=== PATIENT | male | born 1955 | race Caucasian/White ===

== ENCOUNTER 2021-06-08 18:40 | Inpatient (IN) ==
[2021-06-09] MEDS: tiZANidine 4 MG TABLET PO SCH ×2 (18:28→22:37)
[2021-06-09] MEDS: carvediloL 6.25 MG TABLET PO SCH (18:28)
[2021-06-09] MEDS: traZODone 50 MG TABLET PO SCH (22:37)
[2021-06-09] MEDS: Apixaban 5 MG TABLET PO SCH (22:37)
[2021-06-09] MEDS: hydrALAZINE 25 MG TABLET PO SCH (22:37)
[2021-06-10 05:52] LABS: Basophils % 0.3 %; Eosinophils % 0.1 %; Hematocrit 27.2 % (37.5-50.1); Hemoglobin 8.5 g/dL (12.9-16.9); Immature Granulocytes % 2.3 % (0-4); Lymphocytes # 1.5 K/mcL (0.6-4.6); Lymphocytes % 12.9 %; Mean Corpuscular HGB Conc 31.3 g/dL (31.6-35.5); Mean Corpuscular Hemoglobin 27.1 pg (28.0-33.3); Mean Corpuscular Volume 86.6 fL (83.0-100.0); Mean Platelet Volume 10.9 fL (9.4-12.4); Monocytes # 0.6 K/mcL (0.0-1.3); Monocytes % 5.2 %; Neutrophils # 9.1 K/mcL (1.6-8.9); Platelet Count 386 K/mcL (140-400); Red Blood Count 3.14 M/mcL (4.19-5.50); Red Cell Distribution Width 14.1 % (11.5-14.5); Segmented Neutrophils % 79.2 %; White Blood Count 11.5 K/mcL (4.3-11.1)
[2021-06-10 06:13] LABS: Calcium 8.4 mg/dL (8.6-10.3); Potassium 4.6 mEq/L (3.5-5.1)
[2021-06-10] MEDS: carvediloL 6.25 MG TABLET PO SCH (09:43)
[2021-06-10] MEDS: Aspirin Enteric Coated 81 MG Tablet PO SCH (09:45)
[2021-06-10] MEDS: Apixaban 5 MG TABLET PO SCH ×2 (09:46→21:24)
[2021-06-10] MEDS: amLODIPine 5 MG TABLET PO SCH (09:46)
[2021-06-10] MEDS: lisinopriL 10 MG TABLET PO SCH (09:46)
[2021-06-10] MEDS: allopurinoL 300 MG TABLET PO SCH (09:47)
[2021-06-10] MEDS: *HR* GlipiZIDE XL (24 HR) 2.5 MG TABLET PO SCH (09:47)
[2021-06-10] MEDS: tiZANidine 4 MG TABLET PO SCH ×3 (09:47→21:24)
[2021-06-10] MEDS: predniSONE 20 MG TABLET PO SCH (09:47)
[2021-06-10] MEDS ORDERED: D5% in Water 1,000 ML IVC PRN (16:30)
[2021-06-10] MEDS ORDERED: *HR* Dextrose 50 % in Water (Syg) 50 ML SYRINGE IVP PRN (16:30)
[2021-06-10] MEDS ORDERED: Dextrose Gel 15 GM/37.5 ML TUBE PO PRN ×2 (16:30)
[2021-06-10] MEDS: Insulin LISPRO 300 UNITS/3 ML VIAL SUBQ SCH ×2 (16:59→21:25)
[2021-06-10] MEDS: hydrALAZINE 25 MG TABLET PO SCH (21:24)
[2021-06-10] MEDS: traZODone 50 MG TABLET PO SCH (21:24)
[2021-06-11] MEDS: *HR* GlipiZIDE XL (24 HR) 2.5 MG TABLET PO SCH (08:18)
[2021-06-11] MEDS: tiZANidine 4 MG TABLET PO SCH ×3 (08:18→20:24)
[2021-06-11] MEDS: amLODIPine 5 MG TABLET PO SCH (08:18)
[2021-06-11] MEDS: Aspirin Enteric Coated 81 MG Tablet PO SCH (08:18)
[2021-06-11] MEDS: lisinopriL 10 MG TABLET PO SCH (08:18)
[2021-06-11] MEDS: *HR* Metformin 500 MG TABLET PO SCH ×2 (08:19→16:36)
[2021-06-11] MEDS: allopurinoL 300 MG TABLET PO SCH (08:19)
[2021-06-11] MEDS: Insulin LISPRO 300 UNITS/3 ML VIAL SUBQ SCH ×4 (08:19→20:25)
[2021-06-11] MEDS: predniSONE 20 MG TABLET PO SCH (08:19)
[2021-06-11] MEDS: Apixaban 5 MG TABLET PO SCH ×2 (08:19→20:24)
[2021-06-11] MEDS: hydrALAZINE 25 MG TABLET PO SCH (20:24)
[2021-06-11] MEDS: traZODone 50 MG TABLET PO SCH (20:24)
[2021-06-12 05:21] LABS: Basophils % 0.2 %; Eosinophils # 0.1 K/mcL (0.0-0.6); Eosinophils % 1.1 %; Hematocrit 27.4 % (37.5-50.1); Hemoglobin 8.7 g/dL (12.9-16.9); Immature Granulocytes % 3.4 % (0-4); Lymphocytes # 2.2 K/mcL (0.6-4.6); Mean Corpuscular HGB Conc 31.8 g/dL (31.6-35.5); Mean Corpuscular Hemoglobin 27.4 pg (28.0-33.3); Mean Corpuscular Volume 86.2 fL (83.0-100.0); Mean Platelet Volume 11.1 fL (9.4-12.4); Monocytes % 7.3 %; Platelet Count 399 K/mcL (140-400); Red Blood Count 3.18 M/mcL (4.19-5.50); Red Cell Distribution Width 14.2 % (11.5-14.5)
[2021-06-12 05:23] LABS: Neutrophils # 9.2 K/mcL (1.6-8.9)
[2021-06-12 05:35] LABS: BUN/Creatinine Ratio 25 (6-26); Blood Urea Nitrogen 32 mg/dL (8-23); Calcium 8.2 mg/dL (8.6-10.3); Carbon Dioxide 28 mEq/L (23-29); Chloride 101 mEq/L (98-107); Glucose 195 mg/dL (70-105); Osmolality,Calculated 292 (280-300); Potassium 4.5 mEq/L (3.5-5.1); Sodium 135 mEq/L (136-145); eGFR For African Americans > 60 (> 60); eGFR For Non-African Americans 56 (> 60)
[2021-06-12] MEDS: Apixaban 5 MG TABLET PO SCH ×2 (08:02→20:51)
[2021-06-12] MEDS: Aspirin Enteric Coated 81 MG Tablet PO SCH (08:02)
[2021-06-12] MEDS: amLODIPine 5 MG TABLET PO SCH (08:02)
[2021-06-12] MEDS: allopurinoL 300 MG TABLET PO SCH (08:02)
[2021-06-12] MEDS: tiZANidine 4 MG TABLET PO SCH ×3 (08:02→20:51)
[2021-06-12] MEDS: *HR* GlipiZIDE XL (24 HR) 2.5 MG TABLET PO SCH (08:02)
[2021-06-12] MEDS: lisinopriL 10 MG TABLET PO SCH (08:02)
[2021-06-12] MEDS: *HR* Metformin 500 MG TABLET PO SCH ×2 (08:03→17:19)
[2021-06-12] MEDS: Insulin LISPRO 300 UNITS/3 ML VIAL SUBQ SCH ×4 (08:05→20:52)
[2021-06-12] MEDS ORDERED: polyethylene glycoL 3350 17 GM POWD.PACK PO PRN (11:55)
[2021-06-12] MEDS: traZODone 50 MG TABLET PO SCH (20:52)
[2021-06-12] MEDS: hydrALAZINE 25 MG TABLET PO SCH (20:52)
[2021-06-13] MEDS: Insulin LISPRO 300 UNITS/3 ML VIAL SUBQ SCH ×4 (07:31→22:56)
[2021-06-13] MEDS: *HR* Metformin 500 MG TABLET PO SCH ×2 (08:58→16:52)
[2021-06-13] MEDS: lisinopriL 10 MG TABLET PO SCH (08:58)
[2021-06-13] MEDS: tiZANidine 4 MG TABLET PO SCH (08:59)
[2021-06-13] MEDS: Apixaban 5 MG TABLET PO SCH ×2 (08:59→22:55)
[2021-06-13] MEDS: allopurinoL 300 MG TABLET PO SCH (08:59)
[2021-06-13] MEDS: Aspirin Enteric Coated 81 MG Tablet PO SCH (08:59)
[2021-06-13] MEDS: amLODIPine 5 MG TABLET PO SCH (08:59)
[2021-06-13] MEDS: *HR* HYDROcodone/Acet 5/325 mg TABLET PO PRN ×3 (09:11→22:55)
[2021-06-13] MEDS: hydrALAZINE 25 MG TABLET PO SCH (22:56)
[2021-06-13] MEDS: traZODone 50 MG TABLET PO SCH (22:56)
[2021-06-14] MEDS: Insulin LISPRO 300 UNITS/3 ML VIAL SUBQ SCH ×4 (07:47→22:29)
[2021-06-14] MEDS: lisinopriL 10 MG TABLET PO SCH (07:50)
[2021-06-14] MEDS: Aspirin Enteric Coated 81 MG Tablet PO SCH (07:50)
[2021-06-14] MEDS: allopurinoL 300 MG TABLET PO SCH (07:50)
[2021-06-14] MEDS: Apixaban 5 MG TABLET PO SCH ×2 (07:51→22:52)
[2021-06-14] MEDS: amLODIPine 5 MG TABLET PO SCH (07:51)
[2021-06-14] MEDS: *HR* Metformin 500 MG TABLET PO SCH ×2 (07:51→14:58)
[2021-06-14] MEDS: *HR* HYDROcodone/Acet 5/325 mg TABLET PO PRN (07:52)
[2021-06-14] MEDS: tiZANidine 4 MG TABLET PO PRN (14:58)
[2021-06-14] MEDS: hydrALAZINE 25 MG TABLET PO SCH (22:51)
[2021-06-14] MEDS: traZODone 50 MG TABLET PO SCH (22:52)
[2021-06-15] MEDS: *HR* HYDROcodone/Acet 5/325 mg TABLET PO PRN ×2 (00:44→07:37)
[2021-06-15 06:17] LABS: Hematocrit 29.8 % (37.5-50.1); Hemoglobin 9.5 g/dL (12.9-16.9); Mean Corpuscular HGB Conc 31.9 g/dL (31.6-35.5); Mean Corpuscular Hemoglobin 27.3 pg (28.0-33.3); Mean Corpuscular Volume 85.6 fL (83.0-100.0); Mean Platelet Volume 11.3 fL (9.4-12.4); Platelet Count 337 K/mcL (140-400); Red Blood Count 3.48 M/mcL (4.19-5.50); Red Cell Distribution Width 14.6 % (11.5-14.5); White Blood Count 10.2 K/mcL (4.3-11.1)
[2021-06-15 06:31] LABS: Albumin 2.9 g/dL (3.5-5.7); Albumin/Globulin Ratio 1.2 (1.1-2.2); Bilirubin,Total 0.7 mg/dL (0.3-1.0); Calcium 8.2 mg/dL (8.6-10.3); Globulin 2.5 g/dL (2.4-3.5); Magnesium 1.2 mg/dL (1.6-2.6); Potassium 4.1 mEq/L (3.5-5.1); Total Protein 5.4 g/dL (6.4-8.9)
[2021-06-15] MEDS: *HR* Metformin 500 MG TABLET PO SCH ×2 (07:37→17:36)
[2021-06-15] MEDS: allopurinoL 300 MG TABLET PO SCH (07:37)
[2021-06-15] MEDS: Aspirin Enteric Coated 81 MG Tablet PO SCH (07:41)
[2021-06-15] MEDS: Apixaban 5 MG TABLET PO SCH ×2 (07:41→22:01)
[2021-06-15] MEDS: amLODIPine 5 MG TABLET PO SCH (07:41)
[2021-06-15] MEDS: lisinopriL 10 MG TABLET PO SCH (07:42)
[2021-06-15] MEDS: Insulin LISPRO 300 UNITS/3 ML VIAL SUBQ SCH ×4 (07:58→20:23)
[2021-06-15 17:59] LABS: Bilirubin,Urine Negative (Negative); Blood,Urine Trace-intact (Negative); Clarity,Urine Clear (Clear); Color,Urine Yellow (Yellow); Glucose,Urine (UA) Normal (Normal); Ketones,Urine Negative (Negative); Leukocyte Esterase,Urine Small (Negative); Nitrite,Urine Negative (Negative); PH,Urine 5.5 pH Units (5.0-8.0); Protein,Urine 100 mg/dL (Neg-Trace); Specific Gravity,Urine 1.025 (1.010-1.025); Urobilinogen,Urine Normal (Normal)
[2021-06-15 18:06] LABS: Bacteria,Urine Few per hpf (None-Few); Squamous Epithelial Cell,Urine Few per hpf (None-Few); WBC,Urine 30-50 per hpf (0-3)
[2021-06-15] MEDS: 0.9 % Sodium Chloride 1,000 ML IVC SCH (18:52)
[2021-06-15] MEDS: traZODone 50 MG TABLET PO SCH (22:02)
[2021-06-15] MEDS: hydrALAZINE 25 MG TABLET PO SCH (22:02)
[2021-06-15] MEDS: Magnesium Oxide 400 MG TABLET PO SCH (22:02)
[2021-06-16] MEDS: 0.9 % Sodium Chloride 1,000 ML IVC SCH ×2 (04:55→17:16)
[2021-06-16 05:35] LABS: Hemoglobin 8.7 g/dL (12.9-16.9); Mean Corpuscular HGB Conc 32.2 g/dL (31.6-35.5); Mean Corpuscular Hemoglobin 27.6 pg (28.0-33.3); Mean Corpuscular Volume 85.7 fL (83.0-100.0); Mean Platelet Volume 11.1 fL (9.4-12.4); Platelet Count 323 K/mcL (140-400); Red Blood Count 3.15 M/mcL (4.19-5.50); Red Cell Distribution Width 14.7 % (11.5-14.5); White Blood Count 8.2 K/mcL (4.3-11.1)
[2021-06-16 05:48] LABS: Albumin 2.8 g/dL (3.5-5.7); Albumin/Globulin Ratio 1.2 (1.1-2.2); Bilirubin,Total 0.7 mg/dL (0.3-1.0); Globulin 2.4 g/dL (2.4-3.5); Magnesium 1.8 mg/dL (1.6-2.6); Potassium 4.3 mEq/L (3.5-5.1); Total Protein 5.2 g/dL (6.4-8.9)
[2021-06-16] MEDS: Apixaban 5 MG TABLET PO SCH ×2 (08:51→20:14)
[2021-06-16] MEDS: allopurinoL 300 MG TABLET PO SCH (08:51)
[2021-06-16] MEDS: amLODIPine 5 MG TABLET PO SCH (08:51)
[2021-06-16] MEDS: *HR* Metformin 500 MG TABLET PO SCH ×2 (08:51→17:18)
[2021-06-16] MEDS: lisinopriL 10 MG TABLET PO SCH (08:51)
[2021-06-16] MEDS: Magnesium Oxide 400 MG TABLET PO SCH ×2 (08:51→20:14)
[2021-06-16] MEDS: Aspirin Enteric Coated 81 MG Tablet PO SCH (08:51)
[2021-06-16] MEDS: Insulin LISPRO 300 UNITS/3 ML VIAL SUBQ SCH ×4 (08:52→21:31)
[2021-06-16] MEDS: hydrALAZINE 25 MG TABLET PO SCH (20:14)
[2021-06-16] MEDS: traZODone 50 MG TABLET PO SCH (20:15)
[2021-06-17 06:19] LABS: Basophils # 0.1 K/mcL (0.0-0.2); Basophils % 0.6 %; Eosinophils # 0.3 K/mcL (0.0-0.6); Eosinophils % 3.6 %; Hematocrit 27.4 % (37.5-50.1); Hemoglobin 8.7 g/dL (12.9-16.9); Immature Granulocytes % 0.8 % (0-4); Lymphocytes # 1.9 K/mcL (0.6-4.6); Lymphocytes % 23.1 %; Mean Corpuscular HGB Conc 31.8 g/dL (31.6-35.5); Mean Corpuscular Hemoglobin 27.4 pg (28.0-33.3); Mean Corpuscular Volume 86.2 fL (83.0-100.0); Mean Platelet Volume 11.8 fL (9.4-12.4); Monocytes # 1.2 K/mcL (0.0-1.3); Monocytes % 14.2 %; Neutrophils # 4.8 K/mcL (1.6-8.9); Platelet Count 349 K/mcL (140-400); Red Blood Count 3.18 M/mcL (4.19-5.50); Red Cell Distribution Width 14.6 % (11.5-14.5); Segmented Neutrophils % 57.7 %; White Blood Count 8.3 K/mcL (4.3-11.1)
[2021-06-17 06:34] LABS: Calcium 8.2 mg/dL (8.6-10.3); Potassium 4.5 mEq/L (3.5-5.1)
[2021-06-17] MEDS: 0.9 % Sodium Chloride 1,000 ML IVC SCH ×3 (06:43→20:58)
[2021-06-17] MEDS: amLODIPine 5 MG TABLET PO SCH (08:25)
[2021-06-17] MEDS: *HR* Metformin 500 MG TABLET PO SCH ×2 (08:25→16:26)
[2021-06-17] MEDS: allopurinoL 300 MG TABLET PO SCH (08:25)
[2021-06-17] MEDS: Apixaban 5 MG TABLET PO SCH ×2 (08:26→20:57)
[2021-06-17] MEDS: Aspirin Enteric Coated 81 MG Tablet PO SCH (08:26)
[2021-06-17] MEDS: lisinopriL 10 MG TABLET PO SCH (08:26)
[2021-06-17] MEDS: Magnesium Oxide 400 MG TABLET PO SCH ×2 (08:27→20:57)
[2021-06-17] MEDS: Insulin LISPRO 300 UNITS/3 ML VIAL SUBQ SCH ×4 (08:28→20:58)
[2021-06-17] MEDS: tiZANidine 4 MG TABLET PO PRN (18:49)
[2021-06-17] MEDS: traZODone 50 MG TABLET PO SCH (20:57)
[2021-06-17] MEDS: hydrALAZINE 25 MG TABLET PO SCH (20:57)
[2021-06-17] MEDS: *HR* HYDROcodone/Acet 5/325 mg TABLET PO PRN (23:57)
[2021-06-18] MEDS: 0.9 % Sodium Chloride 1,000 ML IVC SCH ×2 (06:49→17:10)
[2021-06-18] MEDS: Insulin LISPRO 300 UNITS/3 ML VIAL SUBQ SCH ×4 (07:30→20:16)
[2021-06-18] MEDS: Apixaban 5 MG TABLET PO SCH ×2 (07:35→20:15)
[2021-06-18] MEDS: allopurinoL 300 MG TABLET PO SCH (07:35)
[2021-06-18] MEDS: amLODIPine 5 MG TABLET PO SCH (07:35)
[2021-06-18] MEDS: *HR* Metformin 500 MG TABLET PO SCH ×2 (07:35→17:19)
[2021-06-18] MEDS: Magnesium Oxide 400 MG TABLET PO SCH ×2 (07:36→20:16)
[2021-06-18] MEDS: Aspirin Enteric Coated 81 MG Tablet PO SCH (07:36)
[2021-06-18] MEDS: lisinopriL 10 MG TABLET PO SCH (07:56)
[2021-06-18] MEDS: tiZANidine 4 MG TABLET PO PRN (10:44)
[2021-06-18] MEDS: *HR* HYDROcodone/Acet 5/325 mg TABLET PO PRN (18:15)
[2021-06-18] MEDS: traZODone 50 MG TABLET PO SCH (20:15)
[2021-06-18] MEDS: hydrALAZINE 25 MG TABLET PO SCH (20:15)
[2021-06-19] MEDS: 0.9 % Sodium Chloride 1,000 ML IVC SCH ×2 (02:31→12:52)
[2021-06-19 04:31] LABS: Hematocrit 28.8 % (37.5-50.1); Hemoglobin 9.1 g/dL (12.9-16.9); Mean Corpuscular HGB Conc 31.6 g/dL (31.6-35.5); Mean Corpuscular Hemoglobin 27.2 pg (28.0-33.3); Platelet Count 330 K/mcL (140-400); Red Blood Count 3.35 M/mcL (4.19-5.50); Red Cell Distribution Width 14.6 % (11.5-14.5); White Blood Count 8.4 K/mcL (4.3-11.1)
[2021-06-19 04:46] LABS: Calcium 8.6 mg/dL (8.6-10.3); Magnesium 1.7 mg/dL (1.6-2.6); Potassium 4.5 mEq/L (3.5-5.1)
[2021-06-19] MEDS: Insulin LISPRO 300 UNITS/3 ML VIAL SUBQ SCH ×3 (07:30→16:43)
[2021-06-19] MEDS: Magnesium Oxide 400 MG TABLET PO SCH ×2 (08:53→20:44)
[2021-06-19] MEDS: allopurinoL 300 MG TABLET PO SCH (08:53)
[2021-06-19] MEDS: Aspirin Enteric Coated 81 MG Tablet PO SCH (08:53)
[2021-06-19] MEDS: Apixaban 5 MG TABLET PO SCH ×2 (08:53→20:44)
[2021-06-19] MEDS: *HR* Metformin 500 MG TABLET PO SCH ×2 (08:53→17:11)
[2021-06-19] MEDS: amLODIPine 5 MG TABLET PO SCH (08:53)
[2021-06-19] MEDS: lisinopriL 10 MG TABLET PO SCH (08:53)
[2021-06-19] MEDS: Ondansetron ODT 4 MG TAB.RAPDIS SL PRN ×2 (09:40→23:51)
[2021-06-19] MEDS: *HR* HYDROcodone/Acet 5/325 mg TABLET PO PRN (17:11)
[2021-06-19] MEDS: Nitrofurantoin (BID) 100 MG CAPSULE PO SCH (17:11)
[2021-06-19] MEDS: hydrALAZINE 25 MG TABLET PO SCH (20:44)
[2021-06-19] MEDS: traZODone 50 MG TABLET PO SCH (20:45)
[2021-06-19] MEDS: polyethylene glycoL 3350 17 GM POWD.PACK PO SCH (20:46)
[2021-06-20] MEDS: Insulin LISPRO 300 UNITS/3 ML VIAL SUBQ SCH ×5 (05:00→20:22)
[2021-06-20] MEDS: 0.9 % Sodium Chloride 1,000 ML IVC SCH ×2 (05:46→12:11)
[2021-06-20] MEDS: Ondansetron ODT 4 MG TAB.RAPDIS SL PRN (06:52)
[2021-06-20] MEDS: *HR* Metformin 500 MG TABLET PO SCH ×2 (08:05→16:44)
[2021-06-20] MEDS: amLODIPine 5 MG TABLET PO SCH (12:07)
[2021-06-20] MEDS: Aspirin Enteric Coated 81 MG Tablet PO SCH (12:07)
[2021-06-20] MEDS: Nitrofurantoin (BID) 100 MG CAPSULE PO SCH ×2 (12:07→16:44)
[2021-06-20] MEDS: Apixaban 5 MG TABLET PO SCH ×2 (12:07→20:11)
[2021-06-20] MEDS: lisinopriL 10 MG TABLET PO SCH (12:07)
[2021-06-20] MEDS: polyethylene glycoL 3350 17 GM POWD.PACK PO SCH ×2 (12:07→20:11)
[2021-06-20] MEDS: allopurinoL 300 MG TABLET PO SCH ×2 (12:07→20:12)
[2021-06-20] MEDS: Magnesium Oxide 400 MG TABLET PO SCH (12:07)
[2021-06-20] MEDS: Famotidine 20 MG/2 ML VIAL IVP SCH (13:46)
[2021-06-20] MEDS: *HR* HYDROcodone/Acet 5/325 mg TABLET PO PRN (18:07)
[2021-06-20] MEDS: hydrALAZINE 25 MG TABLET PO SCH (20:12)
[2021-06-20] MEDS: traZODone 50 MG TABLET PO SCH (20:24)
[2021-06-21] MEDS: Famotidine 20 MG/2 ML VIAL IVP SCH ×2 (04:39→12:14)
[2021-06-21] MEDS: *HR* HYDROcodone/Acet 5/325 mg TABLET PO PRN ×3 (06:44→17:02)
[2021-06-21] MEDS: Apixaban 5 MG TABLET PO SCH ×2 (08:53→21:04)
[2021-06-21] MEDS: amLODIPine 5 MG TABLET PO SCH (08:53)
[2021-06-21] MEDS: Nitrofurantoin (BID) 100 MG CAPSULE PO SCH ×2 (08:53→17:00)
[2021-06-21] MEDS: *HR* Metformin 500 MG TABLET PO SCH ×2 (08:53→17:00)
[2021-06-21] MEDS: polyethylene glycoL 3350 17 GM POWD.PACK PO SCH ×2 (08:56→20:56)
[2021-06-21] MEDS: Insulin LISPRO 300 UNITS/3 ML VIAL SUBQ SCH ×3 (09:02→16:59)
[2021-06-21] MEDS: Aspirin Enteric Coated 81 MG Tablet PO SCH (20:56)
[2021-06-21] MEDS: traZODone 50 MG TABLET PO SCH (20:57)
[2021-06-21] MEDS: lisinopriL 10 MG TABLET PO SCH (20:58)
[2021-06-21] MEDS: allopurinoL 300 MG TABLET PO SCH (20:59)
[2021-06-21] MEDS: hydrALAZINE 25 MG TABLET PO SCH (21:03)
[2021-06-21] MEDS: Ondansetron ODT 4 MG TAB.RAPDIS SL PRN (21:07)
[2021-06-22] MEDS: Insulin LISPRO 300 UNITS/3 ML VIAL SUBQ SCH ×5 (03:12→21:51)
[2021-06-22] MEDS: Famotidine 20 MG/2 ML VIAL IVP SCH ×3 (03:57→23:00)
[2021-06-22 06:12] LABS: Basophils # 0.1 K/mcL (0.0-0.2); Basophils % 0.7 %; Eosinophils # 0.3 K/mcL (0.0-0.6); Eosinophils % 3.8 %; Hematocrit 27.9 % (37.5-50.1); Hemoglobin 8.9 g/dL (12.9-16.9); Immature Granulocytes % 0.7 % (0-4); Lymphocytes # 1.8 K/mcL (0.6-4.6); Lymphocytes % 24.7 %; Mean Corpuscular HGB Conc 31.9 g/dL (31.6-35.5); Mean Corpuscular Hemoglobin 27.2 pg (28.0-33.3); Mean Corpuscular Volume 85.3 fL (83.0-100.0); Mean Platelet Volume 10.8 fL (9.4-12.4); Monocytes # 0.9 K/mcL (0.0-1.3); Monocytes % 11.9 %; Neutrophils # 4.3 K/mcL (1.6-8.9); Platelet Count 305 K/mcL (140-400); Red Blood Count 3.27 M/mcL (4.19-5.50); Red Cell Distribution Width 14.3 % (11.5-14.5); Segmented Neutrophils % 58.2 %; White Blood Count 7.3 K/mcL (4.3-11.1)
[2021-06-22 06:32] LABS: Calcium 8.4 mg/dL (8.6-10.3); Potassium 4.3 mEq/L (3.5-5.1)
[2021-06-22] MEDS: *HR* HYDROcodone/Acet 5/325 mg TABLET PO PRN ×2 (08:35→17:38)
[2021-06-22] MEDS: polyethylene glycoL 3350 17 GM POWD.PACK PO SCH ×2 (08:35→21:50)
[2021-06-22] MEDS: Nitrofurantoin (BID) 100 MG CAPSULE PO SCH ×2 (08:35→17:28)
[2021-06-22] MEDS: *HR* Metformin 500 MG TABLET PO SCH ×2 (08:35→17:28)
[2021-06-22] MEDS: amLODIPine 5 MG TABLET PO SCH (08:36)
[2021-06-22] MEDS: Apixaban 5 MG TABLET PO SCH ×2 (08:36→21:50)
[2021-06-22] MEDS: Ondansetron ODT 4 MG TAB.RAPDIS SL PRN (10:46)
[2021-06-22] MEDS: Aspirin Enteric Coated 81 MG Tablet PO SCH (21:50)
[2021-06-22] MEDS: hydrALAZINE 25 MG TABLET PO SCH (21:50)
[2021-06-22] MEDS: traZODone 50 MG TABLET PO SCH (21:50)
[2021-06-22] MEDS: lisinopriL 10 MG TABLET PO SCH (21:51)
[2021-06-22] MEDS: allopurinoL 300 MG TABLET PO SCH (21:51)
[2021-06-23] MEDS: Ondansetron ODT 4 MG TAB.RAPDIS SL PRN ×3 (03:37→14:22)
[2021-06-23 07:14] VITALS: BP 160/74; PULSE 47; RESP 18; TEMP 98.8
[2021-06-23 08:14] VITALS: O2SAT 94
[2021-06-23] MEDS: Insulin LISPRO 300 UNITS/3 ML VIAL SUBQ SCH ×2 (08:16→13:04)
[2021-06-23] MEDS: *HR* Metformin 500 MG TABLET PO SCH (08:17)
[2021-06-23] MEDS: amLODIPine 5 MG TABLET PO SCH (08:17)
[2021-06-23] MEDS: Apixaban 5 MG TABLET PO SCH (08:17)
[2021-06-23] MEDS: polyethylene glycoL 3350 17 GM POWD.PACK PO SCH (08:17)
[2021-06-23] MEDS: Nitrofurantoin (BID) 100 MG CAPSULE PO SCH (08:23)
[2021-06-23] MEDS: Famotidine 20 MG/2 ML VIAL IVP SCH (13:18)
== END 2021-06-23 15:29 | disposition home health service (06) | DRG 64 ==
LOC: INPGRE 06-09 16:13
PROVIDERS: ADMIT Family Medicine; ATTEND Family Medicine

== ENCOUNTER 2021-07-06 14:05 | Inpatient (IN) ==
[2021-07-07] MEDS: carvediloL 6.25 MG TABLET PO SCH ×3 (09:25→20:55)
[2021-07-07] MEDS: hydrALAZINE 25 MG TABLET PO SCH ×2 (09:26→21:01)
[2021-07-07] MEDS: Apixaban 5 MG TABLET PO SCH ×3 (09:26→21:01)
[2021-07-07] MEDS: Nitrofurantoin (BID) 100 MG CAPSULE PO SCH ×3 (09:27→21:01)
[2021-07-07] MEDS ORDERED: polyethylene glycoL 3350 17 GM POWD.PACK PO PRN (09:41)
[2021-07-07] MEDS: lisinopriL 10 MG TABLET PO SCH (10:35)
[2021-07-07] MEDS: Aspirin Enteric Coated 81 MG Tablet PO SCH (10:35)
[2021-07-07] MEDS: *HR* GlipiZIDE XL (24 HR) 2.5 MG TABLET PO SCH (10:35)
[2021-07-07] MEDS: allopurinoL 300 MG TABLET PO SCH (10:36)
[2021-07-07] MEDS: Acetaminophen 325 MG TABLET PO PRN (14:21)
[2021-07-07 14:58] LABS: Basophils # 0.1 K/mcL (0.0-0.2); Basophils % 0.6 %; Eosinophils # 0.1 K/mcL (0.0-0.6); Eosinophils % 0.6 %; Hematocrit 28.9 % (37.5-50.1); Immature Granulocytes % 0.7 % (0-4); Lymphocytes # 1.7 K/mcL (0.6-4.6); Lymphocytes % 13.7 %; Mean Corpuscular HGB Conc 31.1 g/dL (31.6-35.5); Mean Corpuscular Hemoglobin 26.5 pg (28.0-33.3); Mean Platelet Volume 10.1 fL (9.4-12.4); Monocytes # 0.9 K/mcL (0.0-1.3); Monocytes % 7.2 %; Neutrophils # 9.6 K/mcL (1.6-8.9); Platelet Count 510 K/mcL (140-400); Red Cell Distribution Width 14.8 % (11.5-14.5); Segmented Neutrophils % 77.2 %; White Blood Count 12.4 K/mcL (4.3-11.1)
[2021-07-07] MEDS ORDERED: Lactulose Oral Soln 20 GM/30 ML UDC PO PRN (15:02)
[2021-07-07 15:18] LABS: BUN/Creatinine Ratio 20 (6-26); Blood Urea Nitrogen 26 mg/dL (8-23); Calcium 9.8 mg/dL (8.6-10.3); Carbon Dioxide 28 mEq/L (23-29); Chloride 99 mEq/L (98-107); Glucose 148 mg/dL (70-105); Osmolality,Calculated 290 (280-300); Potassium 4.4 mEq/L (3.5-5.1); Sodium 136 mEq/L (136-145); eGFR For African Americans > 60 (> 60); eGFR For Non-African Americans 57 (> 60)
[2021-07-07] MEDS: Bisacodyl 10 MG RECTAL SUPPOSITORY RC PRN (15:35)
[2021-07-07] MEDS: Sennosides/Docusate Sodium TABLET PO SCH (20:55)
[2021-07-07] MEDS: Melatonin 3 MG TABLET PO SCH (22:46)
[2021-07-08] MEDS ORDERED: Preparation H Ointment 57 GM TUBE TP SCH (09:00)
[2021-07-08] MEDS: carvediloL 6.25 MG TABLET PO SCH ×2 (09:01→21:30)
[2021-07-08] MEDS: polyethylene glycoL 3350 17 GM POWD.PACK PO SCH (09:02)
[2021-07-08] MEDS: Sennosides/Docusate Sodium TABLET PO SCH ×2 (09:02→21:30)
[2021-07-08] MEDS: Aspirin Enteric Coated 81 MG Tablet PO SCH (09:03)
[2021-07-08] MEDS: Nitrofurantoin (BID) 100 MG CAPSULE PO SCH ×2 (09:03→21:30)
[2021-07-08] MEDS: lisinopriL 10 MG TABLET PO SCH (09:03)
[2021-07-08] MEDS: *HR* GlipiZIDE XL (24 HR) 2.5 MG TABLET PO SCH (09:03)
[2021-07-08] MEDS: Apixaban 5 MG TABLET PO SCH ×2 (09:03→21:30)
[2021-07-08] MEDS: allopurinoL 300 MG TABLET PO SCH (09:04)
[2021-07-08] MEDS: Pramoxine 15 GM FOAM Package TP SCH ×3 (09:19→21:30)
[2021-07-08] MEDS ORDERED: D5% in Water 1,000 ML IVC PRN (18:18)
[2021-07-08] MEDS ORDERED: *HR* Dextrose 50 % in Water (Syg) 50 ML SYRINGE IVP PRN (18:18)
[2021-07-08] MEDS ORDERED: Dextrose Gel 15 GM/37.5 ML TUBE PO PRN ×2 (18:18)
[2021-07-08] MEDS: hydrALAZINE 25 MG TABLET PO SCH (21:30)
[2021-07-08] MEDS: Melatonin 3 MG TABLET PO SCH (21:30)
[2021-07-08] MEDS: Insulin LISPRO 300 UNITS/3 ML VIAL SUBQ SCH (21:31)
[2021-07-09] MEDS: Ondansetron ODT 4 MG TAB.RAPDIS SL PRN (04:20)
[2021-07-09] MEDS: Nitrofurantoin (BID) 100 MG CAPSULE PO SCH ×2 (09:38→19:53)
[2021-07-09] MEDS: Acetaminophen 325 MG TABLET PO PRN (09:38)
[2021-07-09] MEDS: Insulin LISPRO 300 UNITS/3 ML VIAL SUBQ SCH ×4 (09:38→19:53)
[2021-07-09] MEDS: polyethylene glycoL 3350 17 GM POWD.PACK PO SCH (09:39)
[2021-07-09] MEDS: lisinopriL 10 MG TABLET PO SCH (09:39)
[2021-07-09] MEDS: Apixaban 5 MG TABLET PO SCH ×2 (09:39→19:52)
[2021-07-09] MEDS: Aspirin Enteric Coated 81 MG Tablet PO SCH (09:39)
[2021-07-09] MEDS: allopurinoL 300 MG TABLET PO SCH (09:39)
[2021-07-09] MEDS: Sennosides/Docusate Sodium TABLET PO SCH ×2 (09:39→19:53)
[2021-07-09] MEDS: carvediloL 6.25 MG TABLET PO SCH ×2 (09:39→16:58)
[2021-07-09] MEDS: *HR* GlipiZIDE XL (24 HR) 2.5 MG TABLET PO SCH (12:44)
[2021-07-09] MEDS: Pramoxine 15 GM FOAM Package TP SCH ×3 (12:44→19:53)
[2021-07-09] MEDS: hydrALAZINE 25 MG TABLET PO SCH (19:53)
[2021-07-09] MEDS: Melatonin 3 MG TABLET PO SCH (19:53)
[2021-07-10 04:47] LABS: Basophils # 0.1 K/mcL (0.0-0.2); Basophils % 0.9 %; Eosinophils # 0.2 K/mcL (0.0-0.6); Hematocrit 26.3 % (37.5-50.1); Hemoglobin 8.3 g/dL (12.9-16.9); Immature Granulocytes % 1.2 % (0-4); Lymphocytes # 1.9 K/mcL (0.6-4.6); Lymphocytes % 24.7 %; Mean Corpuscular HGB Conc 31.6 g/dL (31.6-35.5); Mean Corpuscular Hemoglobin 26.8 pg (28.0-33.3); Mean Corpuscular Volume 84.8 fL (83.0-100.0); Mean Platelet Volume 10.5 fL (9.4-12.4); Monocytes # 0.9 K/mcL (0.0-1.3); Monocytes % 11.1 %; Neutrophils # 4.7 K/mcL (1.6-8.9); Platelet Count 432 K/mcL (140-400); Red Cell Distribution Width 14.6 % (11.5-14.5); Segmented Neutrophils % 60.1 %; White Blood Count 7.8 K/mcL (4.3-11.1)
[2021-07-10 05:05] LABS: Alanine Aminotransferase 18 Units/L (7-52); Albumin 3.3 g/dL (3.5-5.7); Albumin/Globulin Ratio 1.1 (1.1-2.2); Alkaline Phosphatase 77 Units/L (34-104); Aspartate Amino Transferase 19 Units/L (13-39); BUN/Creatinine Ratio 22 (6-26); Bilirubin,Total 0.6 mg/dL (0.3-1.0); Blood Urea Nitrogen 30 mg/dL (8-23); Carbon Dioxide 26 mEq/L (23-29); Chloride 100 mEq/L (98-107); Globulin 2.9 g/dL (2.4-3.5); Glucose 89 mg/dL (70-105); Magnesium 1.6 mg/dL (1.6-2.6); Osmolality,Calculated 286 (280-300); Potassium 4.6 mEq/L (3.5-5.1); Sodium 135 mEq/L (136-145); Total Protein 6.2 g/dL (6.4-8.9); eGFR For African Americans > 60 (> 60); eGFR For Non-African Americans 52 (> 60)
[2021-07-10] MEDS: Ondansetron ODT 4 MG TAB.RAPDIS SL PRN (07:47)
[2021-07-10] MEDS: Insulin LISPRO 300 UNITS/3 ML VIAL SUBQ SCH ×4 (07:51→21:43)
[2021-07-10] MEDS: carvediloL 6.25 MG TABLET PO SCH ×2 (07:51→17:44)
[2021-07-10] MEDS: Aspirin Enteric Coated 81 MG Tablet PO SCH (07:52)
[2021-07-10] MEDS: Apixaban 5 MG TABLET PO SCH ×2 (07:52→22:09)
[2021-07-10] MEDS: Nitrofurantoin (BID) 100 MG CAPSULE PO SCH ×2 (07:53→22:08)
[2021-07-10] MEDS: *HR* GlipiZIDE XL (24 HR) 2.5 MG TABLET PO SCH (07:53)
[2021-07-10] MEDS: lisinopriL 10 MG TABLET PO SCH (07:54)
[2021-07-10] MEDS: Sennosides/Docusate Sodium TABLET PO SCH ×2 (07:54→21:44)
[2021-07-10] MEDS: polyethylene glycoL 3350 17 GM POWD.PACK PO SCH (07:54)
[2021-07-10] MEDS: allopurinoL 300 MG TABLET PO SCH (07:55)
[2021-07-10] MEDS: Pramoxine 15 GM FOAM Package TP SCH ×3 (08:14→21:44)
[2021-07-10] MEDS: Acetaminophen 325 MG TABLET PO PRN (22:08)
[2021-07-10] MEDS: Melatonin 3 MG TABLET PO SCH (22:09)
[2021-07-10] MEDS: hydrALAZINE 25 MG TABLET PO SCH (22:09)
[2021-07-11] MEDS: Insulin LISPRO 300 UNITS/3 ML VIAL SUBQ SCH ×4 (08:53→22:07)
[2021-07-11] MEDS: Sennosides/Docusate Sodium TABLET PO SCH ×2 (08:53→21:38)
[2021-07-11] MEDS: polyethylene glycoL 3350 17 GM POWD.PACK PO SCH (08:53)
[2021-07-11] MEDS: carvediloL 6.25 MG TABLET PO SCH ×2 (08:53→16:21)
[2021-07-11] MEDS: *HR* GlipiZIDE XL (24 HR) 2.5 MG TABLET PO SCH (08:54)
[2021-07-11] MEDS: Ondansetron ODT 4 MG TAB.RAPDIS SL PRN ×2 (09:08→17:50)
[2021-07-11] MEDS: allopurinoL 300 MG TABLET PO SCH (10:51)
[2021-07-11] MEDS: Aspirin Enteric Coated 81 MG Tablet PO SCH (10:51)
[2021-07-11] MEDS: Apixaban 5 MG TABLET PO SCH ×2 (10:51→21:39)
[2021-07-11] MEDS: Pramoxine 15 GM FOAM Package TP SCH ×3 (10:52→22:08)
[2021-07-11] MEDS: Nitrofurantoin (BID) 100 MG CAPSULE PO SCH (10:52)
[2021-07-11] MEDS: lisinopriL 10 MG TABLET PO SCH (10:52)
[2021-07-11 12:06] LABS: Basophils # 0.1 K/mcL (0.0-0.2); Basophils % 0.5 %; Eosinophils # 0.1 K/mcL (0.0-0.6); Eosinophils % 0.5 %; Hematocrit 28.6 % (37.5-50.1); Hemoglobin 8.9 g/dL (12.9-16.9); Immature Granulocytes % 0.6 % (0-4); Lymphocytes % 13.6 %; Mean Corpuscular HGB Conc 31.1 g/dL (31.6-35.5); Mean Corpuscular Hemoglobin 26.4 pg (28.0-33.3); Mean Corpuscular Volume 84.9 fL (83.0-100.0); Mean Platelet Volume 10.7 fL (9.4-12.4); Monocytes # 1.4 K/mcL (0.0-1.3); Monocytes % 9.5 %; Platelet Count 441 K/mcL (140-400); Red Blood Count 3.37 M/mcL (4.19-5.50); Red Cell Distribution Width 14.6 % (11.5-14.5); Segmented Neutrophils % 75.3 %; White Blood Count 14.8 K/mcL (4.3-11.1)
[2021-07-11 12:13] LABS: Albumin 3.5 g/dL (3.5-5.7); Albumin/Globulin Ratio 1.1 (1.1-2.2); Bilirubin,Total 0.8 mg/dL (0.3-1.0); Calcium 9.2 mg/dL (8.6-10.3); Globulin 3.2 g/dL (2.4-3.5); Magnesium 1.5 mg/dL (1.6-2.6); Total Protein 6.7 g/dL (6.4-8.9)
[2021-07-11 12:38] LABS: Neutrophils # 11.1 K/mcL (1.6-8.9)
[2021-07-11 13:34] LABS: Bilirubin,Urine Negative (Negative); Blood,Urine Moderate (Negative); Clarity,Urine Clear (Clear); Color,Urine Yellow (Yellow); Glucose,Urine (UA) Normal (Normal); Ketones,Urine Negative (Negative); Leukocyte Esterase,Urine Large (Negative); Nitrite,Urine Negative (Negative); PH,Urine 7.5 pH Units (5.0-8.0); Protein,Urine 100 mg/dL (Neg-Trace); Specific Gravity,Urine 1.015 (1.010-1.025); Urobilinogen,Urine Normal (Normal)
[2021-07-11 13:43] LABS: Bacteria,Urine Moderate per hpf (None-Few); Squamous Epithelial Cell,Urine Few per hpf (None-Few)
[2021-07-11] MEDS: Acetaminophen 325 MG TABLET PO PRN (16:21)
[2021-07-11] MEDS: hydrALAZINE 25 MG TABLET PO SCH (21:38)
[2021-07-11] MEDS: Melatonin 3 MG TABLET PO SCH (21:38)
[2021-07-11] MEDS: Magnesium Oxide 400 MG TABLET PO SCH (21:39)
[2021-07-12] MEDS: Ondansetron ODT 4 MG TAB.RAPDIS SL PRN (02:29)
[2021-07-12 04:51] LABS: Hematocrit 28.1 % (37.5-50.1); Hemoglobin 8.8 g/dL (12.9-16.9); Mean Corpuscular HGB Conc 31.3 g/dL (31.6-35.5); Mean Corpuscular Hemoglobin 26.5 pg (28.0-33.3); Mean Corpuscular Volume 84.6 fL (83.0-100.0); Mean Platelet Volume 10.4 fL (9.4-12.4); Platelet Count 408 K/mcL (140-400); Red Blood Count 3.32 M/mcL (4.19-5.50); Red Cell Distribution Width 14.5 % (11.5-14.5); White Blood Count 23.7 K/mcL (4.3-11.1)
[2021-07-12 05:04] LABS: Calcium 8.8 mg/dL (8.6-10.3); Magnesium 1.5 mg/dL (1.6-2.6); Potassium 4.8 mEq/L (3.5-5.1)
[2021-07-12] MEDS: Insulin LISPRO 300 UNITS/3 ML VIAL SUBQ SCH ×4 (07:50→20:34)
[2021-07-12] MEDS: Apixaban 5 MG TABLET PO SCH ×2 (08:25→20:33)
[2021-07-12] MEDS: allopurinoL 300 MG TABLET PO SCH (08:25)
[2021-07-12] MEDS: lisinopriL 10 MG TABLET PO SCH (08:25)
[2021-07-12] MEDS: Aspirin Enteric Coated 81 MG Tablet PO SCH (08:25)
[2021-07-12] MEDS: Sennosides/Docusate Sodium TABLET PO SCH ×2 (08:25→20:34)
[2021-07-12] MEDS: carvediloL 6.25 MG TABLET PO SCH ×2 (08:26→17:48)
[2021-07-12] MEDS: *HR* GlipiZIDE XL (24 HR) 2.5 MG TABLET PO SCH (08:26)
[2021-07-12] MEDS: polyethylene glycoL 3350 17 GM POWD.PACK PO SCH ×2 (08:26→08:40)
[2021-07-12] MEDS: Magnesium Oxide 400 MG TABLET PO SCH ×2 (08:26→20:33)
[2021-07-12] MEDS: Pramoxine 15 GM FOAM Package TP SCH ×3 (08:27→20:34)
[2021-07-12] MEDS: levoFLOXacin 500 MG TABLET PO SCH (11:57)
[2021-07-12] MEDS: hydrALAZINE 25 MG TABLET PO SCH (20:33)
[2021-07-12] MEDS: Melatonin 3 MG TABLET PO SCH (20:34)
[2021-07-13 06:06] LABS: Hematocrit 23.9 % (37.5-50.1); Hemoglobin 7.6 g/dL (12.9-16.9); Mean Corpuscular HGB Conc 31.8 g/dL (31.6-35.5); Mean Corpuscular Hemoglobin 26.9 pg (28.0-33.3); Mean Corpuscular Volume 84.5 fL (83.0-100.0); Mean Platelet Volume 10.9 fL (9.4-12.4); Platelet Count 384 K/mcL (140-400); Red Blood Count 2.83 M/mcL (4.19-5.50); Red Cell Distribution Width 14.5 % (11.5-14.5); White Blood Count 23.5 K/mcL (4.3-11.1)
[2021-07-13] MEDS: lisinopriL 10 MG TABLET PO SCH (08:57)
[2021-07-13] MEDS: Sennosides/Docusate Sodium TABLET PO SCH ×2 (08:57→20:39)
[2021-07-13] MEDS: Insulin LISPRO 300 UNITS/3 ML VIAL SUBQ SCH ×4 (08:57→20:40)
[2021-07-13] MEDS: Ondansetron ODT 4 MG TAB.RAPDIS SL PRN (08:58)
[2021-07-13] MEDS: Apixaban 5 MG TABLET PO SCH ×2 (08:58→20:39)
[2021-07-13] MEDS: Aspirin Enteric Coated 81 MG Tablet PO SCH (08:58)
[2021-07-13] MEDS: Acetaminophen 325 MG TABLET PO PRN (08:58)
[2021-07-13] MEDS: levoFLOXacin 500 MG TABLET PO SCH (08:58)
[2021-07-13] MEDS: Magnesium Oxide 400 MG TABLET PO SCH ×2 (08:58→20:39)
[2021-07-13] MEDS: *HR* GlipiZIDE XL (24 HR) 2.5 MG TABLET PO SCH (08:58)
[2021-07-13] MEDS: carvediloL 6.25 MG TABLET PO SCH ×2 (08:58→15:32)
[2021-07-13] MEDS: Pramoxine 15 GM FOAM Package TP SCH ×3 (08:59→20:40)
[2021-07-13] MEDS: allopurinoL 300 MG TABLET PO SCH (08:59)
[2021-07-13] MEDS: polyethylene glycoL 3350 17 GM POWD.PACK PO SCH (08:59)
[2021-07-13] MEDS: hydrALAZINE 25 MG TABLET PO SCH (20:40)
[2021-07-14 06:18] LABS: Basophils # 0.1 K/mcL (0.0-0.2); Basophils % 0.3 %; Eosinophils # 0.2 K/mcL (0.0-0.6); Hematocrit 24.6 % (37.5-50.1); Hemoglobin 7.7 g/dL (12.9-16.9); Immature Granulocytes % 1.6 % (0-4); Lymphocytes % 10.5 %; Mean Corpuscular HGB Conc 31.3 g/dL (31.6-35.5); Mean Corpuscular Hemoglobin 26.5 pg (28.0-33.3); Mean Corpuscular Volume 84.5 fL (83.0-100.0); Monocytes # 1.6 K/mcL (0.0-1.3); Monocytes % 8.3 %; Platelet Count 398 K/mcL (140-400); Red Blood Count 2.91 M/mcL (4.19-5.50); Red Cell Distribution Width 14.6 % (11.5-14.5); Segmented Neutrophils % 78.3 %; White Blood Count 19.3 K/mcL (4.3-11.1)
[2021-07-14 06:34] LABS: Neutrophils # 15.1 K/mcL (1.6-8.9)
[2021-07-14 06:44] LABS: Albumin 3.1 g/dL (3.5-5.7); Albumin/Globulin Ratio 0.9 (1.1-2.2); Bilirubin,Total 0.7 mg/dL (0.3-1.0); Calcium 8.4 mg/dL (8.6-10.3); Globulin 3.3 g/dL (2.4-3.5); Magnesium 1.8 mg/dL (1.6-2.6); Potassium 4.8 mEq/L (3.5-5.1); Total Protein 6.4 g/dL (6.4-8.9)
[2021-07-14 08:32] LABS: Folate 8.6 ng/mL (3.0-16.0)
[2021-07-14] MEDS: Insulin LISPRO 300 UNITS/3 ML VIAL SUBQ SCH ×4 (09:13→21:25)
[2021-07-14] MEDS: Sennosides/Docusate Sodium TABLET PO SCH ×2 (09:14→20:36)
[2021-07-14] MEDS: allopurinoL 300 MG TABLET PO SCH (09:15)
[2021-07-14] MEDS: Magnesium Oxide 400 MG TABLET PO SCH ×2 (09:15→20:36)
[2021-07-14] MEDS: Aspirin Enteric Coated 81 MG Tablet PO SCH (09:15)
[2021-07-14] MEDS: levoFLOXacin 500 MG TABLET PO SCH (09:15)
[2021-07-14] MEDS: carvediloL 6.25 MG TABLET PO SCH ×2 (09:15→16:42)
[2021-07-14] MEDS: Apixaban 5 MG TABLET PO SCH ×2 (09:15→20:36)
[2021-07-14] MEDS: polyethylene glycoL 3350 17 GM POWD.PACK PO SCH (09:16)
[2021-07-14] MEDS: lisinopriL 10 MG TABLET PO SCH (09:16)
[2021-07-14] MEDS: Pramoxine 15 GM FOAM Package TP SCH ×3 (09:16→20:39)
[2021-07-14] MEDS: 0.9 % Sodium Chloride 1,000 ML IVC SCH ×2 (09:30→18:36)
[2021-07-14] MEDS: hydrALAZINE 25 MG TABLET PO SCH (20:36)
[2021-07-15] MEDS: 0.9 % Sodium Chloride 1,000 ML IVC SCH (04:07)
[2021-07-15 06:28] LABS: Hematocrit 22.7 % (37.5-50.1); Hemoglobin 7.2 g/dL (12.9-16.9); Mean Corpuscular HGB Conc 31.7 g/dL (31.6-35.5); Mean Corpuscular Hemoglobin 26.5 pg (28.0-33.3); Mean Corpuscular Volume 83.5 fL (83.0-100.0); Platelet Count 388 K/mcL (140-400); Red Blood Count 2.72 M/mcL (4.19-5.50); Red Cell Distribution Width 14.5 % (11.5-14.5); White Blood Count 14.5 K/mcL (4.3-11.1)
[2021-07-15 07:04] LABS: Calcium 8.5 mg/dL (8.6-10.3); Magnesium 1.9 mg/dL (1.6-2.6); Potassium 4.8 mEq/L (3.5-5.1)
[2021-07-15] MEDS: lisinopriL 10 MG TABLET PO SCH (08:57)
[2021-07-15] MEDS: Apixaban 5 MG TABLET PO SCH ×2 (08:57→20:13)
[2021-07-15] MEDS: Aspirin Enteric Coated 81 MG Tablet PO SCH (08:58)
[2021-07-15] MEDS: Magnesium Oxide 400 MG TABLET PO SCH ×2 (08:58→20:13)
[2021-07-15] MEDS: levoFLOXacin 500 MG TABLET PO SCH (08:58)
[2021-07-15] MEDS: Sennosides/Docusate Sodium TABLET PO SCH ×2 (08:58→20:12)
[2021-07-15] MEDS: allopurinoL 300 MG TABLET PO SCH (08:58)
[2021-07-15] MEDS: carvediloL 6.25 MG TABLET PO SCH ×2 (08:59→16:53)
[2021-07-15] MEDS: Insulin LISPRO 300 UNITS/3 ML VIAL SUBQ SCH ×4 (08:59→20:27)
[2021-07-15] MEDS: Pramoxine 15 GM FOAM Package TP SCH ×3 (09:07→20:07)
[2021-07-15] MEDS: polyethylene glycoL 3350 17 GM POWD.PACK PO SCH (09:08)
[2021-07-15] MEDS ORDERED: *HR* HYDROcodone/Acet 5/325 mg TABLET PO PRN (11:25)
[2021-07-15] MEDS: *HR* HYDROcodone/Acet 5/325 mg TABLET PO PRN (11:31)
[2021-07-15] MEDS: hydrALAZINE 25 MG TABLET PO SCH (20:13)
[2021-07-16] MEDS: Insulin LISPRO 300 UNITS/3 ML VIAL SUBQ SCH ×4 (09:06→20:54)
[2021-07-16] MEDS: allopurinoL 300 MG TABLET PO SCH (09:06)
[2021-07-16] MEDS: lisinopriL 10 MG TABLET PO SCH (09:07)
[2021-07-16] MEDS: *HR* HYDROcodone/Acet 5/325 mg TABLET PO PRN (09:07)
[2021-07-16] MEDS: Aspirin Enteric Coated 81 MG Tablet PO SCH (09:07)
[2021-07-16] MEDS: Sennosides/Docusate Sodium TABLET PO SCH (09:07)
[2021-07-16] MEDS: levoFLOXacin 500 MG TABLET PO SCH (09:08)
[2021-07-16] MEDS: carvediloL 6.25 MG TABLET PO SCH ×2 (09:08→17:35)
[2021-07-16] MEDS: Magnesium Oxide 400 MG TABLET PO SCH ×2 (09:09→20:55)
[2021-07-16] MEDS: Pramoxine 15 GM FOAM Package TP SCH ×3 (09:09→20:55)
[2021-07-16] MEDS: polyethylene glycoL 3350 17 GM POWD.PACK PO SCH (09:09)
[2021-07-16] MEDS: Apixaban 5 MG TABLET PO SCH ×2 (09:10→20:52)
[2021-07-16] MEDS: *HR* OxyCODONE Immed Rel 5 MG TABLET PO PRN ×2 (12:02→17:39)
[2021-07-16] MEDS: predniSONE 20 MG TABLET PO SCH (12:02)
[2021-07-16] MEDS: Sennosides 8.6 MG TABLET PO SCH ×2 (14:42→20:52)
[2021-07-16] MEDS: hydrALAZINE 25 MG TABLET PO SCH (20:54)
[2021-07-17] MEDS: Sennosides 8.6 MG TABLET PO SCH ×2 (08:23→21:14)
[2021-07-17] MEDS: polyethylene glycoL 3350 17 GM POWD.PACK PO SCH (08:23)
[2021-07-17] MEDS: Aspirin Enteric Coated 81 MG Tablet PO SCH (08:23)
[2021-07-17] MEDS: predniSONE 20 MG TABLET PO SCH (08:23)
[2021-07-17] MEDS: Insulin LISPRO 300 UNITS/3 ML VIAL SUBQ SCH ×4 (08:24→21:16)
[2021-07-17] MEDS: lisinopriL 10 MG TABLET PO SCH (08:24)
[2021-07-17] MEDS: Apixaban 5 MG TABLET PO SCH ×2 (08:24→21:13)
[2021-07-17] MEDS: *HR* OxyCODONE Immed Rel 5 MG TABLET PO PRN (08:24)
[2021-07-17] MEDS: allopurinoL 300 MG TABLET PO SCH (08:24)
[2021-07-17] MEDS: Magnesium Oxide 400 MG TABLET PO SCH ×2 (08:25→21:14)
[2021-07-17] MEDS: carvediloL 6.25 MG TABLET PO SCH ×2 (08:25→16:33)
[2021-07-17] MEDS: Pramoxine 15 GM FOAM Package TP SCH ×3 (08:26→21:14)
[2021-07-17 10:35] LABS: Basophils # 0.1 K/mcL (0.0-0.2); Basophils % 0.4 %; Hematocrit 22.9 % (37.5-50.1); Hemoglobin 7.3 g/dL (12.9-16.9); Immature Granulocytes % 5.3 % (0-4); Lymphocytes # 1.5 K/mcL (0.6-4.6); Lymphocytes % 7.9 %; Mean Corpuscular HGB Conc 31.9 g/dL (31.6-35.5); Mean Corpuscular Hemoglobin 26.5 pg (28.0-33.3); Mean Corpuscular Volume 83.3 fL (83.0-100.0); Mean Platelet Volume 10.4 fL (9.4-12.4); Monocytes # 1.1 K/mcL (0.0-1.3); Monocytes % 5.9 %; Neutrophils # 14.7 K/mcL (1.6-8.9); Platelet Count 440 K/mcL (140-400); Red Blood Count 2.75 M/mcL (4.19-5.50); Red Cell Distribution Width 14.6 % (11.5-14.5); Segmented Neutrophils % 80.5 %; White Blood Count 18.3 K/mcL (4.3-11.1)
[2021-07-17 10:48] LABS: Calcium 8.9 mg/dL (8.6-10.3); Potassium 4.9 mEq/L (3.5-5.1)
[2021-07-17] MEDS: Famotidine 20 MG TABLET PO SCH (16:34)
[2021-07-17] MEDS: hydrALAZINE 25 MG TABLET PO SCH (21:14)
[2021-07-18] MEDS: Aspirin Enteric Coated 81 MG Tablet PO SCH (08:44)
[2021-07-18] MEDS: Acetaminophen 325 MG TABLET PO PRN ×2 (08:44→17:53)
[2021-07-18] MEDS: Sennosides 8.6 MG TABLET PO SCH ×2 (08:44→20:42)
[2021-07-18] MEDS: predniSONE 20 MG TABLET PO SCH (08:45)
[2021-07-18] MEDS: allopurinoL 300 MG TABLET PO SCH (08:45)
[2021-07-18] MEDS: *HR* OxyCODONE Immed Rel 5 MG TABLET PO PRN ×2 (08:45→17:53)
[2021-07-18] MEDS: Apixaban 5 MG TABLET PO SCH ×2 (08:45→20:43)
[2021-07-18] MEDS: Famotidine 20 MG TABLET PO SCH (08:45)
[2021-07-18] MEDS: Magnesium Oxide 400 MG TABLET PO SCH ×2 (08:45→20:43)
[2021-07-18] MEDS: lisinopriL 10 MG TABLET PO SCH (08:46)
[2021-07-18] MEDS: carvediloL 6.25 MG TABLET PO SCH ×2 (08:46→17:54)
[2021-07-18] MEDS: Insulin LISPRO 300 UNITS/3 ML VIAL SUBQ SCH ×4 (08:52→21:31)
[2021-07-18] MEDS: Pramoxine 15 GM FOAM Package TP SCH ×3 (10:22→21:37)
[2021-07-18] MEDS: polyethylene glycoL 3350 17 GM POWD.PACK PO SCH (10:22)
[2021-07-18] MEDS: hydrALAZINE 25 MG TABLET PO SCH (20:43)
[2021-07-19] MEDS: Acetaminophen 325 MG TABLET PO PRN (08:05)
[2021-07-19] MEDS: Apixaban 5 MG TABLET PO SCH ×2 (08:06→20:14)
[2021-07-19] MEDS: Magnesium Oxide 400 MG TABLET PO SCH ×2 (08:06→20:14)
[2021-07-19] MEDS: predniSONE 20 MG TABLET PO SCH (08:06)
[2021-07-19] MEDS: Aspirin Enteric Coated 81 MG Tablet PO SCH (08:06)
[2021-07-19] MEDS: Sennosides 8.6 MG TABLET PO SCH ×2 (08:07→20:13)
[2021-07-19] MEDS: Famotidine 20 MG TABLET PO SCH (08:07)
[2021-07-19] MEDS: carvediloL 6.25 MG TABLET PO SCH ×2 (08:07→15:39)
[2021-07-19] MEDS: *HR* OxyCODONE Immed Rel 5 MG TABLET PO PRN ×2 (08:07→15:40)
[2021-07-19] MEDS: lisinopriL 10 MG TABLET PO SCH (08:07)
[2021-07-19] MEDS: polyethylene glycoL 3350 17 GM POWD.PACK PO SCH (08:08)
[2021-07-19] MEDS: *HR* GlipiZIDE XL (24 HR) 2.5 MG TABLET PO SCH (08:08)
[2021-07-19] MEDS: Insulin LISPRO 300 UNITS/3 ML VIAL SUBQ SCH ×4 (08:17→20:22)
[2021-07-19] MEDS: allopurinoL 300 MG TABLET PO SCH (10:05)
[2021-07-19] MEDS: Pramoxine 15 GM FOAM Package TP SCH ×3 (10:05→20:23)
[2021-07-19 11:41] LABS: Basophils # 0.1 K/mcL (0.0-0.2); Basophils % 0.6 %; Eosinophils % 0.1 %; Hemoglobin 7.8 g/dL (12.9-16.9); Immature Granulocytes % 10.8 % (0-4); Lymphocytes # 1.5 K/mcL (0.6-4.6); Lymphocytes % 10.3 %; Mean Corpuscular HGB Conc 31.2 g/dL (31.6-35.5); Mean Corpuscular Hemoglobin 26.3 pg (28.0-33.3); Mean Corpuscular Volume 84.2 fL (83.0-100.0); Mean Platelet Volume 9.8 fL (9.4-12.4); Monocytes # 0.9 K/mcL (0.0-1.3); Monocytes % 6.4 %; Neutrophils # 10.1 K/mcL (1.6-8.9); Platelet Count 510 K/mcL (140-400); Red Blood Count 2.97 M/mcL (4.19-5.50); Red Cell Distribution Width 15.1 % (11.5-14.5); Segmented Neutrophils % 71.8 %; White Blood Count 14.1 K/mcL (4.3-11.1)
[2021-07-19 11:55] LABS: Calcium 9.1 mg/dL (8.6-10.3); Potassium 5.2 mEq/L (3.5-5.1)
[2021-07-19 18:45] LABS: Bilirubin,Urine Negative (Negative); Blood,Urine Trace-intact (Negative); Clarity,Urine Clear (Clear); Color,Urine Yellow (Yellow); Glucose,Urine (UA) Normal (Normal); Ketones,Urine Negative (Negative); Leukocyte Esterase,Urine Moderate (Negative); Nitrite,Urine Negative (Negative); PH,Urine >=9.0 pH Units (5.0-8.0); Protein,Urine 100 mg/dL (Neg-Trace); Urobilinogen,Urine Normal (Normal)
[2021-07-19 18:53] LABS: Bacteria,Urine None Seen per hpf (None-Few); RBC,Urine 0-3 per hpf (0-3); Squamous Epithelial Cell,Urine Few per hpf (None-Few); Triple Phosphate Crystal,Urine Present per hpf; WBC,Urine 0-3 per hpf (0-3)
[2021-07-19] MEDS: hydrALAZINE 25 MG TABLET PO SCH (20:14)
[2021-07-20] MEDS: *HR* OxyCODONE Immed Rel 5 MG TABLET PO PRN ×3 (01:34→22:59)
[2021-07-20 06:06] LABS: Hematocrit 23.5 % (37.5-50.1); Hemoglobin 7.4 g/dL (12.9-16.9); Mean Corpuscular HGB Conc 31.5 g/dL (31.6-35.5); Mean Corpuscular Hemoglobin 26.5 pg (28.0-33.3); Mean Corpuscular Volume 84.2 fL (83.0-100.0); Mean Platelet Volume 10.1 fL (9.4-12.4); Platelet Count 477 K/mcL (140-400); Red Blood Count 2.79 M/mcL (4.19-5.50); Red Cell Distribution Width 15.1 % (11.5-14.5); White Blood Count 14.9 K/mcL (4.3-11.1)
[2021-07-20] MEDS: polyethylene glycoL 3350 17 GM POWD.PACK PO SCH (08:43)
[2021-07-20] MEDS: *HR* GlipiZIDE XL (24 HR) 2.5 MG TABLET PO SCH (08:43)
[2021-07-20] MEDS: allopurinoL 300 MG TABLET PO SCH (08:43)
[2021-07-20] MEDS: Aspirin Enteric Coated 81 MG Tablet PO SCH (08:44)
[2021-07-20] MEDS: Apixaban 5 MG TABLET PO SCH ×2 (08:44→19:59)
[2021-07-20] MEDS: lisinopriL 10 MG TABLET PO SCH (08:44)
[2021-07-20] MEDS: Famotidine 20 MG TABLET PO SCH (08:44)
[2021-07-20] MEDS: carvediloL 6.25 MG TABLET PO SCH ×2 (08:45→16:39)
[2021-07-20] MEDS: Magnesium Oxide 400 MG TABLET PO SCH ×2 (08:45→19:59)
[2021-07-20] MEDS: Sennosides 8.6 MG TABLET PO SCH ×2 (08:45→19:59)
[2021-07-20] MEDS: Pramoxine 15 GM FOAM Package TP SCH ×3 (08:45→21:24)
[2021-07-20] MEDS: Insulin LISPRO 300 UNITS/3 ML VIAL SUBQ SCH ×4 (09:19→20:19)
[2021-07-20] MEDS: predniSONE 20 MG TABLET PO SCH (16:48)
[2021-07-20] MEDS: hydrALAZINE 25 MG TABLET PO SCH (20:00)
[2021-07-21] MEDS ORDERED: amLODIPine 5 MG TABLET PO ONE ×2 (00:10→23:25)
[2021-07-21] MEDS: Bisacodyl 10 MG RECTAL SUPPOSITORY RC PRN (02:52)
[2021-07-21] MEDS: Ondansetron ODT 4 MG TAB.RAPDIS SL PRN (04:33)
[2021-07-21] MEDS: Acetaminophen 325 MG TABLET PO PRN (10:51)
[2021-07-21] MEDS: allopurinoL 300 MG TABLET PO SCH (10:51)
[2021-07-21] MEDS: lisinopriL 10 MG TABLET PO SCH (10:51)
[2021-07-21] MEDS: Famotidine 20 MG TABLET PO SCH (10:51)
[2021-07-21] MEDS: predniSONE 20 MG TABLET PO SCH (10:52)
[2021-07-21] MEDS: carvediloL 6.25 MG TABLET PO SCH ×2 (10:52→16:36)
[2021-07-21] MEDS: *HR* OxyCODONE Immed Rel 5 MG TABLET PO PRN (10:52)
[2021-07-21] MEDS: Sennosides 8.6 MG TABLET PO SCH ×2 (10:52→20:47)
[2021-07-21] MEDS: Aspirin Enteric Coated 81 MG Tablet PO SCH (10:52)
[2021-07-21] MEDS: Apixaban 5 MG TABLET PO SCH ×2 (10:52→20:47)
[2021-07-21] MEDS: *HR* GlipiZIDE XL (24 HR) 2.5 MG TABLET PO SCH (10:52)
[2021-07-21] MEDS: Magnesium Oxide 400 MG TABLET PO SCH ×2 (10:52→20:47)
[2021-07-21] MEDS: polyethylene glycoL 3350 17 GM POWD.PACK PO SCH (10:53)
[2021-07-21] MEDS: Insulin LISPRO 300 UNITS/3 ML VIAL SUBQ SCH ×4 (10:53→20:57)
[2021-07-21] MEDS: Pramoxine 15 GM FOAM Package TP SCH ×3 (10:54→21:00)
[2021-07-21] MEDS: hydrALAZINE 25 MG TABLET PO SCH (20:46)
[2021-07-22] MEDS: polyethylene glycoL 3350 17 GM POWD.PACK PO SCH (09:41)
[2021-07-22] MEDS: Aspirin Enteric Coated 81 MG Tablet PO SCH (09:41)
[2021-07-22] MEDS: carvediloL 6.25 MG TABLET PO SCH ×2 (09:42→16:44)
[2021-07-22] MEDS: predniSONE 20 MG TABLET PO SCH (09:43)
[2021-07-22] MEDS: Magnesium Oxide 400 MG TABLET PO SCH ×2 (09:43→21:20)
[2021-07-22] MEDS: Famotidine 20 MG TABLET PO SCH (09:44)
[2021-07-22] MEDS: Sennosides 8.6 MG TABLET PO SCH ×2 (09:44→21:19)
[2021-07-22] MEDS: allopurinoL 300 MG TABLET PO SCH (09:44)
[2021-07-22] MEDS: lisinopriL 10 MG TABLET PO SCH (09:44)
[2021-07-22] MEDS: Pramoxine 15 GM FOAM Package TP SCH ×3 (09:44→22:03)
[2021-07-22] MEDS: *HR* GlipiZIDE XL (24 HR) 2.5 MG TABLET PO SCH (09:45)
[2021-07-22] MEDS: Apixaban 5 MG TABLET PO SCH ×2 (09:45→21:20)
[2021-07-22] MEDS: Insulin LISPRO 300 UNITS/3 ML VIAL SUBQ SCH ×4 (09:46→21:20)
[2021-07-22] MEDS: hydrALAZINE 25 MG TABLET PO SCH (21:19)
[2021-07-23] MEDS: polyethylene glycoL 3350 17 GM POWD.PACK PO SCH (09:48)
[2021-07-23] MEDS: allopurinoL 300 MG TABLET PO SCH (09:49)
[2021-07-23] MEDS: Magnesium Oxide 400 MG TABLET PO SCH ×2 (09:49→21:21)
[2021-07-23] MEDS: *HR* GlipiZIDE XL (24 HR) 2.5 MG TABLET PO SCH (09:49)
[2021-07-23] MEDS: Famotidine 20 MG TABLET PO SCH (09:49)
[2021-07-23] MEDS: Aspirin Enteric Coated 81 MG Tablet PO SCH (09:49)
[2021-07-23] MEDS: lisinopriL 10 MG TABLET PO SCH (09:49)
[2021-07-23] MEDS: carvediloL 6.25 MG TABLET PO SCH ×2 (09:50→17:09)
[2021-07-23] MEDS: predniSONE 20 MG TABLET PO SCH (09:50)
[2021-07-23] MEDS: Apixaban 5 MG TABLET PO SCH ×2 (09:50→20:29)
[2021-07-23] MEDS: Insulin LISPRO 300 UNITS/3 ML VIAL SUBQ SCH ×4 (09:50→20:29)
[2021-07-23] MEDS: Pramoxine 15 GM FOAM Package TP SCH ×3 (09:51→20:29)
[2021-07-23] MEDS: Sennosides 8.6 MG TABLET PO SCH ×2 (09:51→20:28)
[2021-07-23] MEDS: hydrALAZINE 25 MG TABLET PO SCH (20:28)
[2021-07-23] MEDS: *HR* OxyCODONE Immed Rel 5 MG TABLET PO PRN (22:28)
[2021-07-24] MEDS: Ondansetron ODT 4 MG TAB.RAPDIS SL PRN (00:52)
[2021-07-24 05:02] LABS: Basophils % 0.2 %; Eosinophils # 0.2 K/mcL (0.0-0.6); Eosinophils % 1.2 %; Hemoglobin 7.8 g/dL (12.9-16.9); Immature Granulocytes % 3.7 % (0-4); Lymphocytes # 2.3 K/mcL (0.6-4.6); Lymphocytes % 17.7 %; Mean Corpuscular HGB Conc 31.2 g/dL (31.6-35.5); Mean Corpuscular Hemoglobin 26.6 pg (28.0-33.3); Mean Corpuscular Volume 85.3 fL (83.0-100.0); Mean Platelet Volume 10.2 fL (9.4-12.4); Monocytes % 7.7 %; Platelet Count 429 K/mcL (140-400); Red Blood Count 2.93 M/mcL (4.19-5.50); Red Cell Distribution Width 15.8 % (11.5-14.5); Segmented Neutrophils % 69.5 %; White Blood Count 12.9 K/mcL (4.3-11.1)
[2021-07-24 05:14] LABS: Alanine Aminotransferase 40 Units/L (7-52); Albumin 2.9 g/dL (3.5-5.7); Alkaline Phosphatase 60 Units/L (34-104); Aspartate Amino Transferase 29 Units/L (13-39); BUN/Creatinine Ratio 35 (6-26); Bilirubin,Total 0.5 mg/dL (0.3-1.0); Blood Urea Nitrogen 38 mg/dL (8-23); Calcium 8.3 mg/dL (8.6-10.3); Carbon Dioxide 26 mEq/L (23-29); Chloride 104 mEq/L (98-107); Glucose 133 mg/dL (70-105); Osmolality,Calculated 295 (280-300); Potassium 5.4 mEq/L (3.5-5.1); Sodium 137 mEq/L (136-145); Total Protein 5.9 g/dL (6.4-8.9); eGFR For African Americans > 60 (> 60); eGFR For Non-African Americans > 60 (> 60)
[2021-07-24] MEDS: Acetaminophen 325 MG TABLET PO PRN (08:48)
[2021-07-24] MEDS: *HR* GlipiZIDE XL (24 HR) 2.5 MG TABLET PO SCH (08:48)
[2021-07-24] MEDS: lisinopriL 10 MG TABLET PO SCH (08:48)
[2021-07-24] MEDS: predniSONE 20 MG TABLET PO SCH (08:49)
[2021-07-24] MEDS: Aspirin Enteric Coated 81 MG Tablet PO SCH (08:49)
[2021-07-24] MEDS: allopurinoL 300 MG TABLET PO SCH (08:49)
[2021-07-24] MEDS: Magnesium Oxide 400 MG TABLET PO SCH ×2 (08:49→20:47)
[2021-07-24] MEDS: Apixaban 5 MG TABLET PO SCH ×2 (08:49→20:47)
[2021-07-24] MEDS: Famotidine 20 MG TABLET PO SCH (08:50)
[2021-07-24] MEDS: Insulin LISPRO 300 UNITS/3 ML VIAL SUBQ SCH ×4 (08:51→20:48)
[2021-07-24] MEDS: Sennosides 8.6 MG TABLET PO SCH ×2 (08:52→20:48)
[2021-07-24] MEDS: Pramoxine 15 GM FOAM Package TP SCH ×3 (08:52→20:48)
[2021-07-24] MEDS: carvediloL 6.25 MG TABLET PO SCH ×2 (08:57→14:07)
[2021-07-24] MEDS: polyethylene glycoL 3350 17 GM POWD.PACK PO SCH (10:50)
[2021-07-24] MEDS: *HR* OxyCODONE Immed Rel 5 MG TABLET PO PRN (14:08)
[2021-07-24] MEDS: hydrALAZINE 25 MG TABLET PO SCH (20:47)
[2021-07-25 05:06] LABS: BUN/Creatinine Ratio 31 (6-26); Blood Urea Nitrogen 36 mg/dL (8-23); Calcium 8.4 mg/dL (8.6-10.3); Carbon Dioxide 27 mEq/L (23-29); Chloride 105 mEq/L (98-107); Glucose 130 mg/dL (70-105); Magnesium 1.6 mg/dL (1.6-2.6); Osmolality,Calculated 296 (280-300); Potassium 5.2 mEq/L (3.5-5.1); Sodium 138 mEq/L (136-145); eGFR For African Americans > 60 (> 60); eGFR For Non-African Americans > 60 (> 60)
[2021-07-25 07:33] VITALS: RESP 15
[2021-07-25] MEDS: Insulin LISPRO 300 UNITS/3 ML VIAL SUBQ SCH ×4 (07:37→20:17)
[2021-07-25] MEDS: carvediloL 6.25 MG TABLET PO SCH ×2 (07:38→15:35)
[2021-07-25] MEDS: polyethylene glycoL 3350 17 GM POWD.PACK PO SCH (07:41)
[2021-07-25] MEDS: Pramoxine 15 GM FOAM Package TP SCH ×3 (07:41→20:48)
[2021-07-25] MEDS: Sennosides 8.6 MG TABLET PO SCH ×2 (07:41→19:55)
[2021-07-25] MEDS: *HR* GlipiZIDE XL (24 HR) 2.5 MG TABLET PO SCH (07:48)
[2021-07-25] MEDS: Aspirin Enteric Coated 81 MG Tablet PO SCH (07:48)
[2021-07-25] MEDS: Famotidine 20 MG TABLET PO SCH (07:48)
[2021-07-25] MEDS: Magnesium Oxide 400 MG TABLET PO SCH ×2 (07:48→19:55)
[2021-07-25] MEDS: Apixaban 5 MG TABLET PO SCH ×2 (07:48→19:55)
[2021-07-25] MEDS: lisinopriL 10 MG TABLET PO SCH (07:49)
[2021-07-25] MEDS: allopurinoL 300 MG TABLET PO SCH (07:49)
[2021-07-25] MEDS: hydrALAZINE 25 MG TABLET PO SCH (19:55)
[2021-07-25 20:03] VITALS: PULSE 58
[2021-07-25] MEDS: *HR* OxyCODONE Immed Rel 5 MG TABLET PO PRN (23:14)
[2021-07-26 04:34] LABS: Hematocrit 27.4 % (37.5-50.1); Hemoglobin 8.3 g/dL (12.9-16.9); Mean Corpuscular HGB Conc 30.3 g/dL (31.6-35.5); Mean Corpuscular Hemoglobin 26.2 pg (28.0-33.3); Mean Corpuscular Volume 86.4 fL (83.0-100.0); Mean Platelet Volume 10.1 fL (9.4-12.4); Platelet Count 368 K/mcL (140-400); Red Blood Count 3.17 M/mcL (4.19-5.50); Red Cell Distribution Width 15.9 % (11.5-14.5); White Blood Count 9.2 K/mcL (4.3-11.1)
[2021-07-26 04:56] LABS: Alanine Aminotransferase 39 Units/L (7-52); Alkaline Phosphatase 61 Units/L (34-104); Aspartate Amino Transferase 25 Units/L (13-39); BUN/Creatinine Ratio 26 (6-26); Bilirubin,Total 0.7 mg/dL (0.3-1.0); Blood Urea Nitrogen 36 mg/dL (8-23); Calcium 8.4 mg/dL (8.6-10.3); Carbon Dioxide 25 mEq/L (23-29); Chloride 105 mEq/L (98-107); Globulin 2.9 g/dL (2.4-3.5); Glucose 85 mg/dL (70-105); Magnesium 1.3 mg/dL (1.6-2.6); Osmolality,Calculated 292 (280-300); Potassium 5.1 mEq/L (3.5-5.1); Sodium 137 mEq/L (136-145); Total Protein 5.9 g/dL (6.4-8.9); eGFR For African Americans > 60 (> 60); eGFR For Non-African Americans 52 (> 60)
[2021-07-26] MEDS: Insulin LISPRO 300 UNITS/3 ML VIAL SUBQ SCH ×2 (09:27→11:57)
[2021-07-26] MEDS: carvediloL 6.25 MG TABLET PO SCH (09:28)
[2021-07-26] MEDS: Magnesium Oxide 400 MG TABLET PO SCH (09:28)
[2021-07-26] MEDS: allopurinoL 300 MG TABLET PO SCH (09:28)
[2021-07-26] MEDS: *HR* GlipiZIDE XL (24 HR) 2.5 MG TABLET PO SCH (09:28)
[2021-07-26] MEDS: Apixaban 5 MG TABLET PO SCH (09:28)
[2021-07-26] MEDS: lisinopriL 10 MG TABLET PO SCH (09:29)
[2021-07-26] MEDS: Pramoxine 15 GM FOAM Package TP SCH (09:29)
[2021-07-26] MEDS: polyethylene glycoL 3350 17 GM POWD.PACK PO SCH (09:30)
[2021-07-26] MEDS: Sennosides 8.6 MG TABLET PO SCH (09:30)
[2021-07-26] MEDS: Famotidine 20 MG TABLET PO SCH (09:30)
[2021-07-26] MEDS: Aspirin Enteric Coated 81 MG Tablet PO SCH (09:30)
[2021-07-26] MEDS: Acetaminophen 325 MG TABLET PO PRN (11:47)
[2021-07-26 15:37] VITALS: BP 155/85; TEMP 97.8; O2SAT 97
== END 2021-07-26 13:50 | disposition home health service (06) | DRG 309 ==
LOC: INPGRE 07-07 09:03
PROVIDERS: ADMIT Family Medicine; ATTEND Family Medicine